=== PATIENT | female | born 1945 | race Caucasian/White ===

== ENCOUNTER 2020-12-06 06:47 | Day surgery (SDC) | payer OTHER ==
--- NOTE | 2020-11-30 14:03 | RAD REPORT ---
EXAM DESCRIPTION: Adia Wilder (2 Views)11/30/2020 1:57 pm CLINICAL HISTORY: Preop for cardiac catheterization/hypertension COMPARISON: 2018 FINDINGS: The lungs appear clear of acute infiltrate. The heart is borderline enlarged. Postsurgical changes involve the chest. IMPRESSION: No acute abnormalities displayed
[2020-11-30 14:50] LABS: Absolute Lymphocytes (CBC) 1.7 K/uL (0.7-4.9); Basophils % 0.8 % (0-1.3); Hematocrit 37.5 % (36.0-45.0); Lymphocytes % 19.8 % (15.3-44.8); MPV 8.8 fL (7.6-11.3); RBC Red Blood Cell Count 4.53 M/uL (3.86-4.86)
[2020-11-30 15:01] LABS: Protime INR 1.1
[2020-11-30 15:14] LABS: Potassium 3.8 mmol/L (3.5-5.1)
[2020-12-06] MEDS ORDERED: LIDOCAINE 1% 20 ML MDV ONE (06:59)
[2020-12-06] MEDS ORDERED: HEPA 1000U/500MLS 1,000 UNIT/500 ML BAG IV ONE (06:59)
[2020-12-06] MEDS ORDERED: NA CHLORIDE 0.9% 500 ML ONE (07:12)
[2020-12-06] MEDS ORDERED: MIDAZOLAM HCL 2 MG/2 ML INJ ONE (07:16)
[2020-12-06] MEDS ORDERED: ATROPINE SULF 1 MG/10 ML SYR IV ONE (07:17)
[2020-12-06] MEDS ORDERED: NA CHLORIDE 0.9% 0 ML ONE (07:17)
[2020-12-06] MEDS ORDERED: FENTANYL CITR 100 MCG/2 ML ONE (07:17)
--- NOTE | 2020-12-06 08:07 | OP ---
Surgeon: Leonardo Yang MD Roll Threader Operator: Mr. Axel Vallejo. Procedure: Left heart catheterization. Procedure In Detail: Ms. Moore is the patient with multiple cardiac risk factors, hypertension, dy slipidemia, has atrial fibrillation, atypical chest pain, abnormal stress test, brought to the cath l ab for heart catheterization today. She was prepped and draped in routine sterile fashion, given Jessica sed and fentanyl for sedation. Using the Seldinger technique, 10 cc of Xylocaine and 6-Tamazight sheath introduced in the right common femoral artery. Angiography there was normal. Angio-Seal was used t o close the case. Manisha catheter left and right were used to do the diagnostic catheterization. S he was found to have a normal left main, normal circumflex, a mild plaquing in the RCA. There was ve ry dominant 30% to 40% mid LAD. No complications. Anesthesia: Total conscious sedation 45 minutes. Estimated Blood Loss: 5 mL. Postoperative Diagnoses: Mild coronary artery disease. Plan: Plan is for medical therapy. The patient will go home in 2 hours after bedrest. She will con tinue her home medicine. She will resume Xarelto tomorrow. I will see her in the office in 2 weeks. VINNY/RONY Voice ID: [id number] Report ID: [id number]
[2020-12-06 09:29] VITALS: TEMP 97.1; O2SAT 93
[2020-12-06 10:10] VITALS: BP 142/56
== END 2020-12-06 10:05 | disposition home or self-care (01) ==
LOC: CCL 06:47
DX: I25.10 Atherosclerotic heart disease of native coronary artery without angina pectoris (principal); I48.0 Paroxysmal atrial fibrillation; I10 Essential (primary) hypertension; E78.2 Mixed hyperlipidemia; E11.9 Type 2 diabetes mellitus without complications; G47.33 Obstructive sleep apnea (adult) (pediatric); E66.01 Morbid (severe) obesity due to excess calories; Z68.41 Body mass index [BMI] 40.0-44.9, adult; Z95.0 Presence of cardiac pacemaker; Z87.891 Personal history of nicotine dependence; Z79.01 Long term (current) use of anticoagulants; Z20.822 Contact with and (suspected) exposure to COVID-19
CPT/HCPCS: 93005; 85025; 80048; 36415; 85610; 82947; 85730; 71046; 93454; U0002; C1893; C1760; J2250; J3010; J7040; J1644; J0583

== ENCOUNTER 2024-08-16 11:05 | Day surgery (SDC) | payer OTHER ==
--- NOTE | 2024-08-13 13:26 | RAD REPORT ---
Procedure: Chest Pa And Lat (2 Views) HISTORY: Pre-op pending heart cath COMPARISON: 2022 FINDINGS: The lungs appear clear of acute infiltrate. No significant pleural effusion noted. The heart is normal size.. Pacemaker leads in place. No radiographic evidence of TB. IMPRESSION: No acute abnormality is displayed.
[2024-08-13 13:27] LABS: Absolute Basophils 0.1 K/uL (0-0.5); Absolute Eosinophils 0.1 K/uL (0-0.5); Absolute Lymphocytes (CBC) 1.8 K/uL (0.7-4.9); Absolute Monocytes 0.9 K/uL (0.1-1.3); Absolute Neutrophil 7.5 K/uL (1.8-8.0); Eosinophils % 0.6 % (0-4.4); Hematocrit 39.8 % (36.0-45.0); Hemoglobin 13.3 g/dL (12.0-15.0); Lymphocytes % 17.1 % (15.3-44.8); MCH 27.1 pg (27.0-35.0); MCHC 33.3 g/dL (32.0-36.0); MCV 81.3 fL (80-100); MPV 8.2 fL (7.6-11.3); Neutrophils % 72.3 % (41.7-73.7); Platelets 217 thou/uL (152-406); Red Cell Distribution Width 14.2 % (12.1-15.2)
[2024-08-13 13:33] LABS: PT Prothrombin Time 16.8 SECONDS (9.4-12.5); PTT, Activated Partial Thromb 41.6 SECONDS (24.3-36.9); Protime INR 1.52
[2024-08-13 13:41] LABS: Anion Gap 7.2 mEq/L (5.0-15.0); Potassium 4.2 mEq/L (3.5-5.1)
[2024-08-16] MEDS ORDERED: NA CHLORIDE 0.9% 500 ML ONE (11:10)
[2024-08-16] MEDS ORDERED: HEPA 1000U/500MLS 2,000 UNIT/1,000 ML BAG IV ONE (11:37)
[2024-08-16] MEDS ORDERED: VERAPAMIL HCL 10 MG/4 ML VIAL IV ONE (11:38)
[2024-08-16] MEDS ORDERED: TICAGRELOR 90 MG TABLET PO ONE (11:38)
[2024-08-16] MEDS ORDERED: ATROPINE SULF 1 MG/10 ML SYR IV ONE (11:38)
[2024-08-16] MEDS ORDERED: CLOPIDOGREL 75 MG TABLET ONE (11:38)
[2024-08-16] MEDS ORDERED: LIDOCAINE 1% 20 ML MDV ONE (11:38)
[2024-08-16] MEDS ORDERED: MIDAZOLAM HCL 2 MG/2 ML INJ ONE (11:38)
[2024-08-16] MEDS ORDERED: HEPARIN 10,000 UNIT/10 ML VIAL IV ONE (11:38)
[2024-08-16] MEDS ORDERED: HEPARIN 5000 UNIT/ML 1 ML VIAL ONE (11:38)
[2024-08-16] MEDS ORDERED: FENTANYL CITR 100 MCG/2 ML ONE (11:39)
[2024-08-16] MEDS ORDERED: ASPIRIN 325 MG TAB ONE (11:39)
[2024-08-16 11:51] VITALS: TEMP 97.3
[2024-08-16 14:59] VITALS: O2SAT 94
[2024-08-16 15:37] VITALS: BP 149/63
--- NOTE | 2024-08-16 23:58 | OP ---
Date of Procedure: 08/16/2024 Surgeon: PATI QUEZADA Procedures Performed: 1.Selective coronary angiogram. 2.Left heart catheterization. Indication: Chest pain with abnormal stress test. Access: Right radial artery, 6-Prydeinig, closed with TR band. Complications: None. Bleeding: Less than 50 mL. Anesthesia: Total sedation time was 45 minutes. Used fentanyl, Versed. Description Of Procedure: After risks, benefits, alternatives were explained, the patient agreed to procedure and signed informed consent. The patient was brought into cardiac catheterization laborator y, prepped and draped in sterile fashion and then I accessed right radial artery using pediatric micr opuncture kit, placed 6-Prydeinig slender sheath and took 5-Prydeinig [place] 4 catheter into the aortic root over J-wire across the aortic valve, measured the LVEDP. Pullback did not record any gradient. The n engaged the RCA, took standard views and engaged the left main, took standard views and then remove d the catheter and the sheath, placed TR band with good hemostasis. Findings: 1.Left main, large and normal. 2.LAD; proximal segment is normal; mid segment has diffuse 30%-40% stenosis and after diagonal 2 bra nch, there is about 40% stenosis, stable. Diagonal branches appears to be normal. 3.Left circumflex is normal, small and dominant. 4.RCA is dominant with proximal 20% stenosis. Rest of it is normal. 5.Normal LVEDP around 10 mmHg. Conclusion: Moderate coronary artery disease. Recommendations: Medical management and next time she needs a stress test, we will do a PET stress t est. SR/MODL Voice ID: [id number] Report ID: [id number]
--- NOTE | 2024-08-17 10:08 | EKG ---
Test Date: 2024-08-13 Test Time: 14:04:30 Hydraulic Assembler: NEFTALI MEASUREMENT RESULTS: Intervals: Rate: 64 KS: 182 QRSD: 74 QT: 418 QTc: 431 [place]: P: 22 KS: 182 QRS: 36 T: 58 INTERPRETIVE STATEMENTS: Electronic atrial pacemaker Cannot rule out Anterior infarct, age undetermined Abnormal ECG Compared to ECG 11/21/2023 10:59:44 Myocardial infarct finding now present Sinus rhythm no longer present Electronically Signed On 08-17-24 10:06:59 PHOTOCOMPOSING KEYBOARD OPERATOR by Vincent Hanna
== END 2024-08-16 15:42 | disposition home or self-care (01) ==
LOC: CCL 11:05
PROVIDERS: ATTEND Internal Medicine
DX: I25.10 Atherosclerotic heart disease of native coronary artery without angina pectoris (principal); I34.0 Nonrheumatic mitral (valve) insufficiency; I48.91 Unspecified atrial fibrillation; I73.9 Peripheral vascular disease, unspecified; I10 Essential (primary) hypertension; E78.5 Hyperlipidemia, unspecified; E11.9 Type 2 diabetes mellitus without complications; Z95.0 Presence of cardiac pacemaker; Z87.891 Personal history of nicotine dependence; Z79.01 Long term (current) use of anticoagulants; Z79.85 Long-term (current) use of injectable non-insulin antidiabetic drugs; Z79.899 Other long term (current) drug therapy; Z88.5 Allergy status to narcotic agent; Z88.8 Allergy status to other drugs, medicaments and biological substances; Z91.040 Latex allergy status
CPT/HCPCS: 93005; 85025; 80048; 36415; 85610; 82947; 85730; 71046; 93458; 76937; C1893; Q9966; J1644; J2003; J2250; J3010; J7040; 99152; 99153; J0461